=== PATIENT | female | born 1990 | race Caucasian/White ===

== ENCOUNTER 2020-01-03 21:29 | Inpatient (IN) ==
[2020-01-03] MEDS ORDERED: Lactated Ringers 1000 ml BAG 1,000 ML IV ONE (22:08)
[2020-01-03 22:50] LABS: Urine Benzodiazepine Screen None Detected (None Detect); Urine Cannabinoids Screen None Detected (None Detect); Urine Opiates Screen None Detected (None Detect)
[2020-01-04] MEDS ORDERED: fentaNYL 100 mcg/2 ml 50 MCG/ML VIAL IV SLOW PU ONE ×2 (00:37→02:57)
[2020-01-04 01:03] LABS: ABS Monocytes 0.9 10^3/ul (0-0.8); ABS Neutrophils 12.2 10^3/ul (1.5-7.7); Eosinophil % 0.2 %; Hematocrit 39 % (35-47); Hemoglobin 13.3 g/dL (12.0-16.0); Mean Corpuscular HGB Conc 34 g/dL (31-36); Mean Corpuscular Hemoglobin 30 pg (27-31); Mean Corpuscular Volume 88 fL (80-97); Mean Platelet Volume 10.2 fL (7.4-10.4); Nucleated Red Blood Cells % 0.1; Platelet Count 136 10^3/uL (150-450); Red Blood Count 4.46 10^6 /uL (3.70-4.87); Red Cell Distribution Width 19 % (10-15); White Blood Count 14.1 10^3/uL (3.5-10.8)
[2020-01-04] MEDS ORDERED: Oxytocin in LR 0 UNITS/0 ML BAG IVPB ONE (08:52)
[2020-01-04] MEDS ORDERED: Glycerin ADULT 2.4 gm SUPP PR PRN (10:06)
[2020-01-04] MEDS ORDERED: Witch Hazel PAD JAR TOPICAL PRN (10:06)
[2020-01-04] MEDS ORDERED: Dibucaine 1% OINT 28.35 GM TUBE PR PRN (10:06)
[2020-01-04] MEDS ORDERED: Lidocaine 1% VIAL 10 MG/ML VIAL ONE (10:24)
[2020-01-04] MEDS ORDERED: Lactated Ringers 1000 ml BAG 1,000 ML IV SCH (11:00)
[2020-01-05 07:06] LABS: Hematocrit 29 % (35-47); Hemoglobin 9.9 g/dL (12.0-16.0); Mean Corpuscular HGB Conc 34 g/dL (31-36); Mean Corpuscular Hemoglobin 30 pg (27-31); Mean Corpuscular Volume 89 fL (80-97); Mean Platelet Volume 10.4 fL (7.4-10.4); Platelet Count 123 10^3/uL (150-450); Red Blood Count 3.29 10^6 /uL (3.70-4.87); Red Cell Distribution Width 19 % (10-15); White Blood Count 16.1 10^3/uL (3.5-10.8)
[2020-01-05 10:26] LABS: ABS Eosinophils 0.1 10^3/ul (0-0.6); ABS Lymphocytes 1.7 10^3/ul (1.0-4.8); ABS Monocytes 1.6 10^3/ul (0-0.8); ABS Neutrophils 12.7 10^3/ul (1.5-7.7); Eosinophil % 0.5 %; Lymphocyte % 10.5 %
[2020-01-06 07:46] VITALS: BP 116/62
== END 2020-01-06 14:31 | disposition home or self-care (01) | DRG 560 ==
LOC: MCHOBOUT 21:29 → MCHOB 22:08
PROVIDERS: ADMIT Midwife; ATTEND Midwife